=== PATIENT | male | born 1995 | race Caucasian/White ===

== ENCOUNTER 2017-02-26 01:26 | Emergency (ER) | payer SELFPAY ==
[~2017-02-26] VITALS: Ht 170.1 cm; Wt 68.0 kg
[~2017-02-26 01:26] MED LIST: AMOXICILLIN500 M2 PO; ANAPROX DS550 MG PO; CLARITIN-D 12 H1 TAB PO; CYCLOBENZAPRINE5 M3 PO; KEFLEX500 MG PO; MOTRIN600 MG PO; MOTRIN800 MG PO; Motrin,Rufen800 MG PO; NAPROSYN500 MG PO; TRAMADOL HCL50 MG PO; ULTRAM50 MG PO; VOLTAREN50 M1 PO
[2017-02-26 01:30] VITALS: BP 129/67
[2017-02-26] MEDS ORDERED: PSEUDOEPHEDRINE60 M2 PO (02:04)
[2017-02-26] MEDS ORDERED: Motrin,Rufen800 MG PO (02:04)
[2017-02-26] MEDS ORDERED: OMNICEF300 MG PO (02:04)
== END 2017-02-26 02:29 | disposition home or self-care (01) ==
LOC: ED 01:26
DX: H66.91 Otitis media, unspecified, right ear (principal); H92.01 Otalgia, right ear; J32.9 Chronic sinusitis, unspecified; F17.200 Nicotine dependence, unspecified, uncomplicated

== ENCOUNTER 2017-10-08 07:53 | Inpatient (IN) | payer SELFPAY ==
[2017-10-08] VITALS (9 sets, daily range): BP systolic 115–135; BP diastolic 66–92
[~2017-10-08] VITALS: Ht 167.6 cm; Wt 63.2 kg
[~2017-10-08 07:53] MED LIST changes: +OMNICEF300 MG PO; +PSEUDOEPHEDRINE60 M2 PO
[2017-10-08 08:20] LABS: BILIRUBIN NEGATIVE (NEGATIVE); BLOOD NEGATIVE (NEGATIVE); CLARITY SL CLOUDY (CLEAR); COLOR YELLOW (YELLOW); GLUCOSE NEGATIVE (NEGATIVE); KETONE NEGATIVE (NEGATIVE); LEUKO ESTERASE NEGATIVE (NEGATIVE); NITRITE NEGATIVE (NEGATIVE); UROBILINOGEN 0.2 E.U./dl (0.2-1.0)
[2017-10-08 08:29] LABS: BASO # 0.1 10*3/uL (0.0-0.1); BASO % 0.7 % (0.0-1.0); EOS # 0.1 10*3/uL (0.0-0.4); EOS % 1.5 % (1.0-4.0); HEMATOCRIT 43.2 % (42.0-52.0); LYMPH # 2.2 10*3/uL (1.3-4.4); MEAN CELL VOLUME 82.3 fl (80.0-94.0); MEAN CORPUSCULAR HGB 28.6 pg (27.0-31.0); MEAN CORPUSCULAR HGB CONC 34.7 g/dl (33.0-37.0); MEAN PLATELET VOLUME 10.1 fl (9.6-12.3); MONO # 0.6 10*3/uL (0.1-1.0); MONO % 8.1 % (3.0-9.0); NEUT % 57.6 % (47.0-73.0); PLATELET COUNT AUTOMATED 244 10*3/uL (130-400); RED BLOOD COUNT 5.25 10*6/uL (4.50-5.90); RED CELL DISTRI WIDTH 13.2 % (0-14.5); WHITE BLOOD COUNT 6.9 10*3/uL (4.8-10.8)
[2017-10-08 08:43] LABS: WBC 0-2 wbc/hpf (0-5)
[2017-10-08 08:45] LABS: ALBUMIN 4.3 gm/dl (3.1-4.5); ALKALINE PHOSPHATASE 66 U/L (45-117); BUN 8 mg/dl (7-24); CHLORIDE 106 mmol/L (98-107); CREATININE 1.03 mg/dL (0.70-1.30); LIPASE 414 U/L (73-393); POTASSIUM 3.7 mmol/L (3.5-5.1); SGOT/AST 19 IU/L (3-35); SGPT/ALT 21 U/L (12-78); SODIUM 140 mmol/L (136-145); TOTAL PROTEIN 7.6 gm/dL (6.4-8.2)
--- NOTE | 2017-10-08 09:09 | NUR ---
PT REPORTS RELIEF OF PAIN. AMBULATORY TO BATHROOM WITHOUT DIFFICULTY. PT TO CAT SCAN AT THIS TIME.
--- NOTE | 2017-10-08 10:46 | NUR ---
REPORT CALLED TO RN. PT STABLE AND READY FOR TRANSPORT TO THE FLOOR.
--- NOTE | 2017-10-08 11:00 | NUR ---
Time: 1100 A 22 year old MALE admitted to 4E under services of MAURISIO BANUELOS DO. Pt. arrived via wheel chair from ER. Chief complaint: ABDOMINAL PAIN . LESLIE CHAVEZ
--- NOTE | 2017-10-08 14:38 | NUR ---
NOTIFIED DR MENSAH OF NEW CONSULTATION. ORDERS RECEIVED FLEET ENEMA AND 1 DOSE OF MIRALAX. SEE EMAR FOR FURTHER DOCUMENTATION.
--- NOTE | 2017-10-08 17:00 | NUR ---
PT C/O ABD PAIN 06/23. MEDICATION WITH GOOD EFFECT. SEE EMAR FOR FURTHER DOCUMENTATION.
--- NOTE | 2017-10-08 19:57 | NUR ---
PATIENT SITTING IN BED PLAYING ON LAPTOP. VISITOR AT BEDSIDE. PATIENT STATES HE HAD A LARGE BM BUT IT FEELS LIKE "SPLINTERS" ARE STABBING HIM IN HIS ABD. TYLENOL WAS OFFERED. PATIENT STATES HE WILL TAKE IT BUT WOULD LIKE TO HAVE SOMETHING STRONGER. WILL MONITOR. BED IN LOWEST POSITION, CALL LIGHT IN REACH
--- NOTE | 2017-10-08 20:36 | NUR ---
MEDICATED WITH PRN TYLENOL RATED 7/10 ON A 0/10 PAIN SCALE
--- NOTE | 2017-10-08 23:16 | NUR ---
PATIENT AMBULATED IN FROM OUTSIDE. STATES HE WAS OUT GETTING CHANGE FROM HIS CAR. STATES THAT HE FEELS BETTER AND WANTS TO GO AMA. EDUCATED ON THE IMPORTANCE OF STAYING FOR TREATMENT. STATES HE DOES NOT WANT TO STAY. DR ORTIZ AND NURSING CHANNEL LIP WETTER AWARE. AMA PAPER SIGNED. HEP LOCK REMOVED WITH CATHETER INTACT. PATIENT AMBULATED OUT WITH BELONGINGS INTACT.
== END 2017-10-08 23:16 | disposition left against medical advice (07) | DRG 392 ==
LOC: ED 07:53 → EDHOLD 10:18 → 4E 10:23
PROVIDERS: Emergency Medicine; ADMIT Internal Medicine
DX: R10.30 Lower abdominal pain, unspecified (principal); K59.00 Constipation, unspecified; R73.9 Hyperglycemia, unspecified; Z53.21 Procedure and treatment not carried out due to patient leaving prior to being seen by health care provider; R00.1 Bradycardia, unspecified; Z72.0 Tobacco use; Z79.899 Other long term (current) drug therapy; Z80.49 Family history of malignant neoplasm of other genital organs; Z84.89 Family history of other specified conditions

== ENCOUNTER 2017-10-10 11:23 | Emergency (ER) | payer SELFPAY ==
[~2017-10-10] VITALS: Ht 167.6 cm; Wt 65.8 kg
[2017-10-10 13:49] VITALS: BP 103/64
[2017-10-10 14:10] LABS: BASO # 0.1 10*3/uL (0.0-0.1); BASO % 0.5 % (0.0-1.0); EOS % 0.3 % (1.0-4.0); HEMATOCRIT 45.1 % (42.0-52.0); HEMOGLOBIN 15.8 g/dl (14.0-18.0); LYMPH # 1.6 10*3/uL (1.3-4.4); LYMPH % 15.2 % (27.0-41.0); MEAN CELL VOLUME 82.6 fl (80.0-94.0); MEAN CORPUSCULAR HGB 28.9 pg (27.0-31.0); MEAN PLATELET VOLUME 9.9 fl (9.6-12.3); MONO # 0.5 10*3/uL (0.1-1.0); MONO % 4.2 % (3.0-9.0); NEUT # 8.5 10*3/uL (2.3-7.9); NEUT % 79.6 % (47.0-73.0); PLATELET COUNT AUTOMATED 280 10*3/uL (130-400); RED BLOOD COUNT 5.46 10*6/uL (4.50-5.90); RED CELL DISTRI WIDTH 13.2 % (0-14.5); WHITE BLOOD COUNT 10.7 10*3/uL (4.8-10.8)
[2017-10-10 14:26] LABS: ALBUMIN 4.8 gm/dl (3.1-4.5); ALKALINE PHOSPHATASE 66 U/L (45-117); BUN 9 mg/dl (7-24); CHLORIDE 105 mmol/L (98-107); POTASSIUM 4.3 mmol/L (3.5-5.1); SGOT/AST 15 IU/L (3-35); SGPT/ALT 19 U/L (12-78); SODIUM 139 mmol/L (136-145); TOTAL PROTEIN 7.8 gm/dL (6.4-8.2)
[2017-10-10 14:35] LABS: BILIRUBIN NEGATIVE (NEGATIVE); BLOOD NEGATIVE (NEGATIVE); CLARITY CLEAR (CLEAR); COLOR YELLOW (YELLOW); GLUCOSE NEGATIVE (NEGATIVE); KETONE NEGATIVE (NEGATIVE); LEUKO ESTERASE NEGATIVE (NEGATIVE); NITRITE NEGATIVE (NEGATIVE); PH 8.5 (5.0-9.0); UROBILINOGEN 0.2 E.U./dl (0.2-1.0)
[2017-10-10 14:42] LABS: WBC 0-2 wbc/hpf (0-5)
[2017-10-10 15:08] LABS: URINE AMPHETAMINES < 1000 (1000ng/ml); URINE BARBITURATES < 200 (200ng/ml); URINE BENZODIAZEPINES < 200 (200ng/ml); URINE CANNABINOIDS (THC) > 50 (50ng/ml); URINE COCAINE < 300 (300ng/ml); URINE METHADONE < 300 (300ng/ml); URINE OPIATES > 300 (300ng/ml)
[2017-10-10 15:10] LABS: URINE PHENCYCLIDINE < 25 (25ng/ml)
[2017-10-10] MEDS ORDERED: MIRALAX POWDER17 G1 PO (15:27)
== END 2017-10-10 15:33 | disposition home or self-care (01) ==
LOC: ED 11:23
PROVIDERS: Emergency Medicine
DX: R10.32 Left lower quadrant pain (principal); R73.9 Hyperglycemia, unspecified; F17.210 Nicotine dependence, cigarettes, uncomplicated

== ENCOUNTER 2019-12-16 18:55 | Emergency (ER) | payer SELFPAY ==
[~2019-12-16] VITALS: Ht 167.6 cm; Wt 65.8 kg
[~2019-12-16 18:55] MED LIST changes: +CLINDAMYCIN HC300 MG PO; +MIRALAX POWDER17 G1 PO; +[UNRECOGNIZED DRUG - REMARK]
[2019-12-16 19:01] VITALS: BP 96/58
[2019-12-16] MEDS ORDERED: IBU800 MG PO (19:32)
== END 2019-12-16 19:53 | disposition home or self-care (01) ==
LOC: ED 18:55
DX: M76.62 Achilles tendinitis, left leg (principal); M76.61 Achilles tendinitis, right leg

== ENCOUNTER 2020-03-09 11:05 | Emergency (ER) | payer SELFPAY ==
[~2020-03-09] VITALS: Ht 172.7 cm; Wt 70.3 kg
[~2020-03-09 11:05] MED LIST changes: +IBU800 MG PO
[2020-03-09 11:10] VITALS: BP 150/85
[2020-03-09] MEDS ORDERED: Motrin,Rufen800 MG PO (13:23)
[2020-03-09] MEDS ORDERED: CYCLOBENZAPRINE5 M3 PO (13:23)
== END 2020-03-09 14:05 | disposition home or self-care (01) ==
LOC: ED 11:05
DX: S39.012A Strain of muscle, fascia and tendon of lower back, initial encounter (principal); Z79.899 Other long term (current) drug therapy; X58.XXXA Exposure to other specified factors, initial encounter; Y93.89 Activity, other specified; Y92.89 Other specified places as the place of occurrence of the external cause; Y99.8 Other external cause status

== ENCOUNTER 2020-06-15 21:43 | Emergency (ER) | payer OTHER ==
[~2020-06-15] VITALS: Ht 170.1 cm; Wt 65.8 kg
[2020-06-15 21:52] VITALS: BP 118/75
[2020-06-16] MEDS ORDERED: Motrin,Rufen800 MG PO (00:11)
== END 2020-06-16 00:39 | disposition home or self-care (01) ==
LOC: ED 21:43
DX: S20.211A Contusion of right front wall of thorax, initial encounter (principal); F17.200 Nicotine dependence, unspecified, uncomplicated; Y08.89XA Assault by other specified means, initial encounter; Y93.89 Activity, other specified; Y92.89 Other specified places as the place of occurrence of the external cause; Y99.8 Other external cause status

== ENCOUNTER 2022-03-09 17:53 | Emergency (ER) | payer OTHER ==
[~2022-03-09] VITALS: Ht 170.1 cm; Wt 68.0 kg
[2022-03-09 19:02] VITALS: BP 125/68
== END 2022-03-09 19:06 | disposition home or self-care (01) ==
LOC: ED 17:53
DX: T50.901A Poisoning by unspecified drugs, medicaments and biological substances, accidental (unintentional), initial encounter (principal); Y92.89 Other specified places as the place of occurrence of the external cause

== ENCOUNTER 2022-10-21 07:24 | Emergency (ER) | payer OTHER ==
[~2022-10-21] VITALS: Ht 170.1 cm; Wt 74.8 kg
[2022-10-21 07:29] VITALS: BP 144/81
[2022-10-21] MEDS ORDERED: IBU800 M2 PO (07:40)
[2022-10-21] MEDS ORDERED: CLINDAMYCIN HC300 MG PO (07:40)
== END 2022-10-21 07:45 | disposition home or self-care (01) ==
LOC: ED 07:24
DX: K02.9 Dental caries, unspecified (principal); F17.200 Nicotine dependence, unspecified, uncomplicated

== ENCOUNTER 2023-12-08 10:51 | Emergency (ER) | payer OTHER ==
[~2023-12-08] VITALS: Ht 170.1 cm; Wt 79.4 kg
[~2023-12-08 10:51] MED LIST changes: +IBU800 M2 PO; +NAPROXEN250 MG PO
[2023-12-08 10:59] VITALS: BP 139/71
[2023-12-08] MEDS ORDERED: Tetracaine Hydrochloride 0.5% 4 ML BOT OPH ONE (11:10)
[2023-12-08] MEDS ORDERED: FLUORESCEIN SODIUM 1 MG STRIP OPH ONE (11:10)
[2023-12-08] MEDS ORDERED: AMOX-CLAV 875-1 EACH PO (11:25)
[2023-12-08] MEDS ORDERED: OFLOXACIN 10 ML10 M2 OD (11:25)
[2023-12-08] MEDS ORDERED: OFLOXACIN 0.3% 5 ML BOTTLE OPH ONE (11:30)
[2023-12-08] MEDS ORDERED: Amoxicillin/Clavulanate Pota 875 MG TAB PO ONE (11:30)
== END 2023-12-08 11:33 | disposition home or self-care (01) ==
LOC: ED 10:51
DX: S05.01XA Injury of conjunctiva and corneal abrasion without foreign body, right eye, initial encounter (principal); H66.91 Otitis media, unspecified, right ear; F17.200 Nicotine dependence, unspecified, uncomplicated; X58.XXXA Exposure to other specified factors, initial encounter; Y93.89 Activity, other specified; Y92.89 Other specified places as the place of occurrence of the external cause; Y99.8 Other external cause status

== ENCOUNTER 2024-02-27 18:21 | Emergency (ER) | payer OTHER ==
[~2024-02-27] VITALS: Wt 72.6 kg
[~2024-02-27 18:21] MED LIST changes: +AMOX-CLAV 875-1 EACH PO; +OFLOXACIN 10 ML10 M2 OD
[2024-02-27 18:46] VITALS: BP 115/70
[2024-02-27] MEDS ORDERED: PREDNISONE10 MG PO (18:52)
[2024-02-27] MEDS ORDERED: methylPREDNISolone sod succ 125 MG VIAL IM ONE (18:55)
== END 2024-02-27 18:55 | disposition home or self-care (01) ==
LOC: ED 18:21
DX: L23.7 Allergic contact dermatitis due to plants, except food (principal); F17.200 Nicotine dependence, unspecified, uncomplicated

== ENCOUNTER 2024-03-08 20:19 | Emergency (ER) | payer OTHER ==
[~2024-03-08] VITALS: Ht 172.7 cm; Wt 74.8 kg
[~2024-03-08 20:19] MED LIST changes: +PREDNISONE10 MG PO
[2024-03-08 20:30] VITALS: BP 143/76
[2024-03-08] MEDS ORDERED: ATARAX,VISTARIL10 MG PO (20:55)
[2024-03-08] MEDS ORDERED: PREDNISONE20 M1 PO (20:55)
[2024-03-08] MEDS ORDERED: CEPHALEXIN500 M1 PO (20:55)
[2024-03-08] MEDS ORDERED: methylPREDNISolone sod succ 125 MG VIAL IM ONE (21:00)
[2024-03-08] MEDS ORDERED: hydrOXYzine pamoate 25 MG CAP PO ONE (21:00)
[2024-03-08] MEDS ORDERED: CEPHALEXIN 500 MG CAP PO ONE (21:00)
== END 2024-03-08 21:20 | disposition home or self-care (01) ==
LOC: ED 20:19
DX: L23.7 Allergic contact dermatitis due to plants, except food (principal); L03.90 Cellulitis, unspecified; R73.9 Hyperglycemia, unspecified; F17.200 Nicotine dependence, unspecified, uncomplicated

== ENCOUNTER 2024-08-10 18:35 | Emergency (ER) | payer OTHER ==
[~2024-08-10] VITALS: Ht 170.1 cm; Wt 74.8 kg
[~2024-08-10 18:35] MED LIST changes: +ATARAX,VISTARIL10 MG PO; +CEPHALEXIN500 M1 PO; +PREDNISONE20 M1 PO
[2024-08-10 18:48] VITALS: BP 113/58
[2024-08-10 19:22] LABS: BILIRUBIN Negative (Negative); BLOOD Negative (Negative); CLARITY Clear (Clear); COLOR Yellow (Yellow); GLUCOSE Negative (Negative); KETONE Negative (Negative); LEUKO ESTERASE Negative (Negative); NITRITE Negative (Negative); PH 7.5 (4.5-8.0)
[2024-08-10 19:30] LABS: BASO # 0.1 10*3/uL (0.0-0.1); BASO % 0.8 % (0.0-1.0); EOS # 0.2 10*3/uL (0.0-0.4); HEMATOCRIT 43.5 % (42.0-52.0); LYMPH # 2.7 10*3/uL (1.3-4.4); LYMPH % 32.3 % (27.0-41.0); MEAN CELL VOLUME 83.2 fl (80.0-94.0); MEAN CORPUSCULAR HGB 27.7 pg (27.0-31.0); MEAN CORPUSCULAR HGB CONC 33.3 g/dl (33.0-37.0); MEAN PLATELET VOLUME 9.7 fl (9.6-12.3); MONO # 0.7 10*3/uL (0.1-1.0); MONO % 8.3 % (3.0-9.0); NEUT # 4.7 10*3/uL (2.3-7.9); NEUT % 56.4 % (47.0-73.0); PLATELET COUNT AUTOMATED 255 10*3/uL (130-400); RED BLOOD COUNT 5.23 10*6/uL (4.50-5.90); RED CELL DISTRI WIDTH 13.2 % (0-14.5); WHITE BLOOD COUNT 8.4 10*3/uL (4.8-10.8)
[2024-08-10 19:56] LABS: ALKALINE PHOSPHATASE 55 U/L (46-116); BUN 12 mg/dl (9-23); CHLORIDE 104 mmol/L (98-107); LIPASE 35 U/L (12-53); POTASSIUM 3.8 mmol/L (3.4-5.1); SGPT/ALT 22 U/L (5-49)
== END 2024-08-10 21:06 | disposition home or self-care (01) ==
LOC: ED 18:35
PROVIDERS: Physician Assistant Medical
DX: K59.00 Constipation, unspecified (principal); F17.200 Nicotine dependence, unspecified, uncomplicated

== ENCOUNTER 2024-08-24 15:57 | Emergency (ER) | payer OTHER ==
[~2024-08-24] VITALS: Ht 170.1 cm; Wt 74.8 kg
[2024-08-24 16:19] VITALS: BP 118/61
== END 2024-08-24 18:14 | disposition home or self-care (01) ==
LOC: ED 15:57
DX: S60.221A Contusion of right hand, initial encounter (principal); F17.200 Nicotine dependence, unspecified, uncomplicated; W23.0XXA Caught, crushed, jammed, or pinched between moving objects, initial encounter; Y93.89 Activity, other specified; Y92.89 Other specified places as the place of occurrence of the external cause; Y99.0 Civilian activity done for income or pay

== ENCOUNTER 2025-02-14 15:25 | Emergency (ER) | payer OTHER ==
[~2025-02-14] VITALS: Ht 170.1 cm; Wt 70.3 kg
[2025-02-14] MEDS ORDERED: Dexamethasone Sodium Phospha 20 MG/5 ML VIAL IM ONE (15:50)
[2025-02-14] MEDS ORDERED: TRIAMCINOLONE430 GM TD (15:51)
== END 2025-02-14 16:21 | disposition home or self-care (01) ==
LOC: ED 15:25
DX: L25.9 Unspecified contact dermatitis, unspecified cause (principal); F17.200 Nicotine dependence, unspecified, uncomplicated